=== PATIENT | female | born 1980 ===

== ENCOUNTER → 2019-09-12 | Outpatient (CLI) | payer OTHER | LOC: MHCPAIN 13:55 | DX: G89.29 Other chronic pain (principal); M47.817 Spondylosis without myelopathy or radiculopathy, lumbosacral region; M54.16 Radiculopathy, lumbar region; M53.3 Sacrococcygeal disorders, not elsewhere classified | CPT/HCPCS: G0463 ==

== ENCOUNTER → 2019-09-26 | Outpatient (CLI) | payer OTHER | LOC: MHCPAIN 13:02 | DX: M48.07 Spinal stenosis, lumbosacral region (principal); M54.16 Radiculopathy, lumbar region | CPT/HCPCS: J1100; Q9967 ==

== ENCOUNTER → 2019-10-05 | Outpatient (CLI) | payer OTHER | LOC: MHCPAIN 12:35 | DX: M47.817 Spondylosis without myelopathy or radiculopathy, lumbosacral region (principal); M54.16 Radiculopathy, lumbar region | CPT/HCPCS: G0463 ==

== ENCOUNTER → 2019-10-20 | Outpatient (CLI) | payer OTHER | LOC: MHCPAIN 10:37 | DX: M48.07 Spinal stenosis, lumbosacral region (principal); M54.16 Radiculopathy, lumbar region ==

== ENCOUNTER → 2019-11-16 | Outpatient (CLI) | payer OTHER | LOC: MHCPAIN 14:08 | DX: M47.817 Spondylosis without myelopathy or radiculopathy, lumbosacral region (principal); M54.16 Radiculopathy, lumbar region | CPT/HCPCS: G0463 ==

== ENCOUNTER 2022-03-14 07:47 | Day surgery (SDC) | payer OTHER ==
[~2022-03-14] VITALS: Ht 162.6 cm; Wt 84.2 kg
[2022-03-14 08:50] VITALS: BP 124/92; PULSE 62; TEMP 97
[2022-03-14 09:50] VITALS: BP 133/85; PULSE 50; TEMP 97
--- NOTE | 2022-03-14 09:50 | NUR ---
PT arrived from procedure and was settled by Richar AGUIRRE. PT provided coffee, juice and a muffin per request. VSS. PT oriented to room and call nails, within reach. Verbal report then obtained. PT denies nausea. NO vomiting. was brought in from waiting room.
[2022-03-14] MEDS ORDERED: LINZESS72 MCG PO (09:59)
[2022-03-14] MEDS ORDERED: ADDERALL20 MG PO (10:00)
[2022-03-14] MEDS ORDERED: PROZAC 20MG20 MG PO (10:00)
[2022-03-14] MEDS ORDERED: MAG-OX 400400 MG/TAB PO (10:01)
[2022-03-14] MEDS ORDERED: ZYRTEC 10MG10 MG PO (10:02)
[2022-03-14] MEDS ORDERED: MASON NATURAL2000 IU PO (10:03)
[2022-03-14 10:05] VITALS: BP 140/90; PULSE 50
--- NOTE | 2022-03-14 10:05 | NUR ---
VSS. PT continues to deny nausea and expressed desire to be discharged. Call nails remains within reach.
[2022-03-14 10:25] VITALS: BP 135/74; PULSE 64
--- NOTE | 2022-03-14 10:25 | NUR ---
VSS. Call nails remains within reach
--- NOTE | 2022-03-14 10:35 | NUR ---
is speaking with the PT and .
--- NOTE | 2022-03-14 10:40 | NUR ---
IV discontinued. Catheter tip intact. Pressure bandage applied. NO redness or swelling noted. DC instructions and educational material reveiwed with the PT who verbalized understanding and signed the realted paperwork. PT denied needing assitance changing and then was dismissed from endo via wheelchair to the PT entrence by Suha AGUIRRE. PT has DC packet and personal belongings and was transferred into the care of her , who is driving private car.
== END 2022-03-14 10:55 | disposition home or self-care (01) ==
LOC: SDCO 07:47
DX: K58.1 Irritable bowel syndrome with constipation (principal); K62.5 Hemorrhage of anus and rectum; K64.1 Second degree hemorrhoids; Z87.891 Personal history of nicotine dependence
CPT/HCPCS: J2704; J7120